=== PATIENT | female | born 2005 | race Caucasian/White ===

== ENCOUNTER 2023-03-30 05:48 | Inpatient (IN) | payer OTHER, SELFPAY ==
[2023-03-30] VITALS (147 sets, daily range): BP systolic 112–137; BP diastolic 56–88; PULSE 75–117; RESP 18; TEMP 36.8–37.7; O2SAT 95–100; BMI 29.5
[2023-03-30 05:39] LABS: ROM Plus Positive
[2023-03-30] MEDS: Penicillin G POT. 5,000,000 UNITS in Normal Saline 100 ML 200 UNITS IVPB (06:19)
[2023-03-30 06:47] LABS: HCT 35.3 % (36.0-46.0); MCH 28.7 pg (27.0-33.0); MCV 84 fL (80-95); MPV 10.3 fL (8.0-11.0); Platelet Count 286 10^3/uL (130-400); RBC 4.18 10^6/uL (3.93-5.22); RDW 12.2 % (11.7-14.6); WBC 13.78 10^3/uL (4.4-10.8)
--- NOTE | 2023-03-30 09:09 | W.PM.OBHPL1 ---
Date of service: 03/30/23 Time of Service: 09:09 Assessment and Plan Assessment and plan (1) Rupture, membranes, premature: Status: Acute Assessment and plan: Pt will get up and walk and see if that helps her discomfort. May consider pain management in the future. Would consider IV medication prior to epidural. OB-HPI Labor/Delivery History of Present Illness Reason for Visit: Labor Chief Complaint: Suspected Rupture of Membranes , Associated Signs and Symptoms of Suspected ROM: loss of fluid. Comments: Pt awoke from sleep to a gush of fluid soaking the bed at 2:40am. Mild contractions started after that. No bleeding. + movement. History of Present Narrative: P0 @37.3wk with uncomplicated . GBS+ Review of Systems Constitutional Constitutional: Reports system reviewed and no additional complaints, except as documented Gastrointestinal Gastrointestinal: Denies nausea and Reports vomiting (throughout - no different now.) Genitourinary Genitourinary: Reports system reviewed and no additional complaints, except as documented Musculoskeletal Comments: No regular contractions PFSH All Active Problems (Updated 03/30/23 @ 09:16 by Inge Dumont MD) Rupture, membranes, premature (Acute) Medical History (Updated 03/30/23 @ 09:16 by Inge Dumont MD) Depression no medication Social History Smoking/Tobacco Use Status: Never Smoking risk assessment performed?: Yes Alcohol Intake: never Drug use: Never Substance use type: does not use Do you feel safe at home: Yes Do you feel safe in your relationship?: Yes History History 1 Para 0 Hx # Term Pregnancies Multiple births Hx # Pregnancies Ectopic pregnancies AB induced Hx Number of Living Children AB spontaneous Exam Physical Exam Vital signs: Temp Pulse Resp BP 98.4 F 83 18 134/86 03/30/23 07:18 03/30/23 08:58 03/30/23 07:18 03/30/23 08:58 Vital Signs Reviewed: Yes Detailed Labor and Delivery Exam Dilation: 1.5 Effacement (%): 90 station: -2 Fischer Score: Cervical Points Exam 0 1 2 3 Dilation Closed 1-2cm 3-4 cm 5-6cm Effacement 0-30% 40-50% 60-70% 80% Consistency Firm Medium Soft Station -3 -2 -1,0 +1,+2 Position Posterior Mid Anterior Amniotic Membrane Status: Ruptured Rupture Method: Spontaneous Amniotic Fluid: Clear ROM Plus: Positive Fetus A Heart Rate Baseline: 135 Monitor Accelerations: Present Monitor Decelerations: None Variability: Moderate (6-25 BPM) Categories: Category I Date of Membrane Rupture: 03/30/23 Time of Membrane Rupture: 02:45 Detailed HEENT Exam Head: Present normocephalic and atraumatic Detailed Abdominal Exam Comments: gravid, nontender EFW ~8lbs Detailed Neurological Exam Neurological: Present alert, oriented X3 and CN II-XII intact DetailedPsychiatric Exam Psychiatric: Present normal affect, normal thought process and cooperative Results Results Group Beta Strep: Positive Blood Type: A+ Rubella Status: Immune Varicella Immunity: Not Tested Abnormal Lab Findings: Abnormal Labs 03/30/23 06:27 WBC 13.78 H Hct 35.3 L Risk Assessment Risks Reviewed Risks Reviewed Upon Admission: Yes
[2023-03-30] MEDS: Penicillin G POT. 3,000,000 UNITS in Normal Saline 50 ML 100 UNITS IVPB ×4 (10:08→22:44)
[2023-03-30] MEDS: NALBUPHINE 5 MG in Normal Saline 50 ML 100 MG IVPB (11:55)
[2023-03-30] MEDS: Ondansetron 4 MG/2 ML VIAL IVP ×3 (14:24→22:44)
--- NOTE | 2023-03-30 14:42 | W.ANESPRE ---
General Info Date of Service Date Performed: 03/30/23 Height: 5 ft 6 in Weight: 83.007 kg Body Mass Index (BMI): 29.5 Meds Allergies and Home Medications Current Visit Medications: Current Medications Generic Name Dose Route Start Last Admin Trade Name Freq PRN Reason Stop Dose Admin Ephedrine Sulfate 5 mg 03/30/23 14:34 Ephedrine 50 Mg/Ml Vial IVP DIRECTED PRN Penicillin G Potassium 3,000, 50 mls @ 100 mls/hr 03/30/23 10:00 03/30/23 14:26 000 units/ Sodium Chloride IVPB 100 mls/hr Q4H MEGHAN Administration Sodium Chloride 500 mls @ 0 mls/hr 03/30/23 05:55 Saline 500ml Bag IV PRN PRN As Directed Sodium Chloride 500 mls @ 0 mls/hr 03/30/23 05:57 Saline 500ml Bag IV PRN PRN As Directed Ringer's Solution 1,000 mls @ 125 mls/hr 03/30/23 06:30 IV INFUSION MEGHAN Nalbuphine HCl 5 mg/ Sodium 50.5 mls @ 100 mls/hr 03/30/23 09:22 03/30/23 13:16 Chloride IVPB Infused PRN PRN Infusion Ringer's Solution 250 mls @ 500 mls/hr 03/30/23 14:34 IV 03/30/23 15:03 BOLUS ONE IV Miscellaneous Supplies 1 each 03/30/23 06:00 Iv Access IV DIRECTED MEGHAN IV Miscellaneous Supplies 1 each 03/30/23 06:00 Iv Access IV DIRECTED MEGHAN Naloxone HCl 0 mg 03/30/23 14:34 Naloxone 0.4 Mg/Ml Vial IVP DIRECTED PRN Ondansetron HCl 4 mg 03/30/23 09:22 03/30/23 14:24 Ondansetron 4 Mg/2 Ml Vial IVP 4 mg Q4H PRN PRN Administration Sodium Chloride 0 ml 03/30/23 05:55 Normal Saline Flush 10 Ml Syr IVP PRN PRN Sodium Chloride 0 ml 03/30/23 05:57 Normal Saline Flush 10 Ml Syr IVP PRN PRN PFSH Active Problems Active Problems: Problem Status Onset Code Rupture, membranes, premature O42.90 Medical History Medical History (Updated 03/30/23 @ 09:16 by Inge Dumont MD) Depression no medication Tobacco Smoking/Tobacco Use Status: Never Alcohol Alcohol Intake: never Substance Use Substance use: Never Substance use type: does not use Prental History History 1 Para 0 Hx # Term Pregnancies Multiple births Hx # Pregnancies Ectopic pregnancies AB induced Hx Number of Living Children AB spontaneous Vital Signs and Lab Results Vital Signs Most Recent Vital Signs in EMR: Most Recent Vital Signs Temp Pulse Resp BP 37.0 C 85 18 133/77 03/30/23 12:44 03/30/23 12:44 03/30/23 12:44 03/30/23 12:44 Lab Results 03/30/23 06:27 Blood Type / Crossmatch: Patient ABO/Rh A Positive 03/30/23 Antibody Screen NEGATIVE 03/30/23 Complete Blood Count: White Blood Count 13.78 10^3/uL (4.4-10.8) H 03/30/23 06:27 Red Blood Count 4.18 10^6/uL (3.93-5.22) 03/30/23 06:27 Hemoglobin 12.0 g/dL (11.2-15.7) 03/30/23 06:27 Hematocrit 35.3 % (36.0-46.0) L 03/30/23 06:27 Platelet Count 286 10^3/uL (130-400) 03/30/23 06:27 Complete Metabolic Panel: No Data to Display Liver Function Panel: No Data to Display Coagulation Panel: No Data to Display Cardiac Panel: No Data to Display Arterial Blood Gas: No Data to Display Venous Blood Gas: No Data to Display Pancreas Panel: No Data to Display Thyroid Panel: No Data to Display Infectious Disease: No Data to Display Blood Cultures: No Data to Display Toxicology Panel: No Data to Display Panel: No Data to Display Anesthesia Assessment and Plan Anesthesia History Personal History: No History of Anesthesia Complications Family History: No Family History of Anesthesia Complications Exercise Tolerance Exercise Tolerance: Metabolic Equivalents>4 Cardiac & Pulmonary Exam Cardiac Exam: Normal S1/S2 Heart Sounds Pulmonary Exam: Clear Bilateral Breath Sounds Implantable Cardiac Device Does patient have a Pacemaker or an ICD?: No Airway Exam Known Difficult Airway: No Mallampati Class: 3 Mouth Opening: Normal (> 3cm) Thyromental Distance: Greater than 3 cm Neck Range of Motion: Full ROM Neck Circumference: Normal Teeth Condition: Normal Dentition ASA Classification ASA Score: ASA 2 Emergency Case?: No NPO Status NPO Status: Full Stomach Status Status: Confirmed Anesthesia Plan Resuscitation Status: Full Code Anesthesia Technique: Epidural Anesthesia Airway Planned: Natural Airway Monitors Used: Standard Monitors Preoperative Comments:: 17 yo female requesting labor epidural. 37 wks, last exam noted at 1240 2 cm, 90%, 0. Sig PMHx: depression, never smoker, otherwise healthy.
--- NOTE | 2023-03-30 15:00 | W.PM.OBNL1 ---
Date of service: 03/30/23 Time of Service: 14:30 Pelvic Exam Dilation: 3 Effacement (%): 95 station: 0 Fetus A Heart Rate Baseline: 135 Presentation: Vertex Variability: Moderate (6-25 BPM) Categories: Category I Accelerations: 15 X 15 Decelerations: None Amniotic Membrane Status: Ruptured Rupture Method: Spontaneous Assessment and Plan Assessment and plan (1) Rupture, membranes, premature: Status: Acute Assessment and plan: Discussed the various options for pain management including IV pain meds, NO and an epidural. She opts for the epidural. Anesthesia notified. All questions answered. Objective Abnormal lab results 03/30/23 Range/Units 06:27 WBC 13.78 H (4.4-10.8) 10^3/uL Hct 35.3 L (36.0-46.0) % Temp Pulse Resp BP Pulse Ox 98.8 F 100 H 18 137/88 100 03/30/23 14:56 03/30/23 14:59 03/30/23 12:44 03/30/23 14:51 03/30/23 14:57 Laboratory Results WBC 13.78 10^3/uL (4.4-10.8) H 03/30/23 06:27 RBC 4.18 10^6/uL (3.93-5.22) 03/30/23 06:27 Hgb 12.0 g/dL (11.2-15.7) 03/30/23 06:27 Hct 35.3 % (36.0-46.0) L 03/30/23 06:27 MCV 84 fL (80-95) 03/30/23 06:27 MCH 28.7 pg (27.0-33.0) 03/30/23 06:27 MCHC 34.0 % (32.0-36.0) 03/30/23 06:27 RDW 12.2 % (11.7-14.6) 03/30/23 06:27 Plt Count 286 10^3/uL (130-400) 03/30/23 06:27 MPV 10.3 fL (8.0-11.0) 03/30/23 06:27 Membranes Rupture Positive 03/30/23 05:02 Patient ABO/Rh A Positive 03/30/23 06:27 Antibody Screen NEGATIVE 03/30/23 06:27 Vital Signs Reviewed: Yes Subjective Interval history since last seen: Pt more uncomfortable with the contractions feeling stronger and increased pressure. She is feeling tired and discouraged. Results Hemoglobin/Hematocrit: Hgb 12.0 g/dL (11.2-15.7) 03/30/23 06:27 Hct 35.3 % (36.0-46.0) L 03/30/23 06:27 Abnormal Lab Findings: Abnormal Labs 03/30/23 06:27 WBC 13.78 H Hct 35.3 L
[2023-03-30] MEDS: FentaNYL/ROPIvacaine 2 mcg/ml and 0.1% 200 ML CADD Cassette EP (15:16)
--- NOTE | 2023-03-30 15:27 | ANES.NEURP_ITS ---
Epidural/Spinal Daily Note Date Performed: 03/30/23
--- NOTE | 2023-03-30 15:27 | W.ANESEPD ---
Epidural/Spinal Daily Note Date Performed: 03/30/23
--- NOTE | 2023-03-30 15:28 | W.ANESNEU ---
Epidural/Spinal Catheter Date Performed: 03/30/23 Procedure Start: 15:00 Procedure Stop: 15:15 Requesting Provider: Inge Dumont Procedure Location: Obstetrics Reason Performed: Labor Epidural Standard Monitors Applied: Blood Pressure and SpO2 Patient Position: Sitting Sedation Given (Indicate Dose Given): No Sedation given Patient Mental Status: Awake Sterility: Hand Hygiene, Surgical Cap, Surgical Mask, Sterile Gloves, Sterile Drape/Sheet and Chlorhexidine Procedure Location: L2-L3 Interspace Epidural Needle: Tuohy 17 Guage Needle Length: 3.5 Inch Needle Approach: Midline Epidural Procedure: BEVERLY to Saline Used Catheter Placed?: Catheter Placed Test Dose (Indicate Dose Given): 3ml 1.5% Lidocaine with 1:200K Epinephrine Given and Negative Test Dose Loss of Resistance Depth (cm): 4 Catheter depth at skin (cm): 10 Dressing: Sorbaview Dressing Placed and Mastisol Used Epidural Provider Bolus (Indicate Dose Given): Total Ropivacaine 0.1% with Fentanyl 2mcg/ml Given from pump. (ml) Dose:: 7 mL Additives (Indicate Dose Given ): None Infusion Medication: Medication Infusion Began Medication Infusion: Ropivacaine 0.1% with Fentanyl 2mcg/ml Maintenance Infusion Rate (ml/hour): 10 PCEA Bolus Dose (ml): 5 Block Level: N/A Paresthesia: None Ultrasound: Used to kumar site Number of Attempts (See previous attempts in note section): 1 Procedure Tolerated: No Complications Procedure Outcome: Successful Procedure Comment:: after loading dose, next contraction appeared much more comfortable. States that the effect feels equal both side. educated on PCEA. Performed By: Celestino John
[2023-03-30] MEDS: Lactated Ringers 250 ML 500 ML IV (15:50)
--- NOTE | 2023-03-30 17:27 | W.PM.OBNL1 ---
Date of service: 03/30/23 Time of Service: 17:20 Pelvic Exam Dilation: 4 Effacement (%): 100 station: 0 Fetus A Heart Rate Baseline: 130 Presentation: Vertex Variability: Moderate (6-25 BPM) Accelerations: 15 X 15 Decelerations: None Amniotic Membrane Status: Ruptured Rupture Method: Spontaneous Amniotic Fluid: Clear Assessment and Plan Assessment and plan (1) Rupture, membranes, premature: Status: Acute Assessment and plan: Comfortable with epidural. Continue expectant management. Dr. Morales aware of pt status and will assume care shortly. (2) Positive GBS test: Status: Acute Assessment and plan: Continue PCN propylaxis Objective Abnormal lab results 03/30/23 Range/Units 06:27 WBC 13.78 H (4.4-10.8) 10^3/uL Hct 35.3 L (36.0-46.0) % Temp Pulse Resp BP Pulse Ox 98.4 F 95 H 18 121/73 98 03/30/23 16:00 03/30/23 17:25 03/30/23 15:16 03/30/23 16:55 03/30/23 17:25 Laboratory Results WBC 13.78 10^3/uL (4.4-10.8) H 03/30/23 06:27 RBC 4.18 10^6/uL (3.93-5.22) 03/30/23 06:27 Hgb 12.0 g/dL (11.2-15.7) 03/30/23 06:27 Hct 35.3 % (36.0-46.0) L 03/30/23 06:27 MCV 84 fL (80-95) 03/30/23 06:27 MCH 28.7 pg (27.0-33.0) 03/30/23 06:27 MCHC 34.0 % (32.0-36.0) 03/30/23 06:27 RDW 12.2 % (11.7-14.6) 03/30/23 06:27 Plt Count 286 10^3/uL (130-400) 03/30/23 06:27 MPV 10.3 fL (8.0-11.0) 03/30/23 06:27 Membranes Rupture Positive 03/30/23 05:02 Patient ABO/Rh A Positive 03/30/23 06:27 Antibody Screen NEGATIVE 03/30/23 06:27 Vital Signs Reviewed: Yes Subjective Interval history since last seen: Pt is comfortable s/p epidural Results Hemoglobin/Hematocrit: Hgb 12.0 g/dL (11.2-15.7) 03/30/23 06:27 Hct 35.3 % (36.0-46.0) L 03/30/23 06:27 Abnormal Lab Findings: Abnormal Labs 03/30/23 06:27 WBC 13.78 H Hct 35.3 L
[2023-03-30] MEDS: Lactated Ringers 250 ML 999 ML IV (19:09)
[2023-03-30] MEDS: Lactated Ringers 1,000 ML 125 ML IV (19:51)
--- NOTE | 2023-03-30 20:45 | W.PM.OBNL1 ---
Date of service: 03/30/23 Time of Service: 20:46 Pelvic Exam Dilation: 6.5 Effacement (%): 100 station: 0 Cervix Position: anterior Consistency: soft Vaginal Exam Presentation: Vertex Contractions Monitor Mode: External Contraction Frequency(min): 3 Contraction Duration(sec): 60 Fetus A Monitor: External (US) Heart Rate Baseline: 150 Presentation: Vertex Variability: Moderate (6-25 BPM) Categories: Category I FHR Rhythm: Regular Characteristics: Normal Accelerations: 15 X 15 Decelerations: Late (minimal intermittent late decels previously, now resolved) and Variable (intermittent, mild) Recurrence: Intermittent Amniotic Membrane Status: Ruptured Assessment Note: Currently category 1 however periods of category 2 with mild intermittent late and variable decels. She had one prolonged decel that resolved with position change and fluid bolus to mom. Assessment and Plan Assessment and plan (1) Rupture, membranes, premature: Status: Acute Assessment and plan: Vanda is doing well, epidural effective. She has made good cervical change and baby is low. SVE 6-7/100/0. Baby has had periods of minimal variability and intermittent late and variable decels after one prolonged decel, however he has recovered to a category 1 strip. Will monitor closely, continue with position changes. GBS+ with now 4 doses of pen in, so adequately prophylaxed. (2) Positive GBS test: Status: Acute (3) : Status: Acute Objective Abnormal lab results 03/30/23 Range/Units 06:27 WBC 13.78 H (4.4-10.8) 10^3/uL Hct 35.3 L (36.0-46.0) % Temp Pulse Resp BP Pulse Ox 37.1 C 107 H 18 120/67 99 03/30/23 20:33 03/30/23 20:41 03/30/23 15:16 03/30/23 20:41 03/30/23 19:20 Laboratory Results WBC 13.78 10^3/uL (4.4-10.8) H 03/30/23 06:27 RBC 4.18 10^6/uL (3.93-5.22) 03/30/23 06:27 Hgb 12.0 g/dL (11.2-15.7) 03/30/23 06:27 Hct 35.3 % (36.0-46.0) L 03/30/23 06:27 MCV 84 fL (80-95) 03/30/23 06:27 MCH 28.7 pg (27.0-33.0) 03/30/23 06:27 MCHC 34.0 % (32.0-36.0) 03/30/23 06:27 RDW 12.2 % (11.7-14.6) 03/30/23 06:27 Plt Count 286 10^3/uL (130-400) 03/30/23 06:27 MPV 10.3 fL (8.0-11.0) 03/30/23 06:27 Membranes Rupture Positive 03/30/23 05:02 Patient ABO/Rh A Positive 03/30/23 06:27 Antibody Screen NEGATIVE 03/30/23 06:27 Vital Signs Reviewed: Yes Subjective Patient Reports: No new Complaints Results Hemoglobin/Hematocrit: Hgb 12.0 g/dL (11.2-15.7) 03/30/23 06:27 Hct 35.3 % (36.0-46.0) L 03/30/23 06:27 Abnormal Lab Findings: Abnormal Labs 03/30/23 06:27 WBC 13.78 H Hct 35.3 L
--- NOTE | 2023-03-30 22:03 | W.PM.OBNL1 ---
Date of service: 03/30/23 Time of Service: 22:03 Pelvic Exam Dilation: 8 Effacement (%): 100 station: 0 Cervix Position: anterior Consistency: soft Vaginal Exam Presentation: Vertex Contractions Monitor Mode: External Contraction Frequency(min): 3 Contraction Duration(sec): 60 Intensity: Moderate Fetus A Monitor: External (US) Heart Rate Baseline: 160 Presentation: Vertex Variability: Moderate (6-25 BPM) Categories: Category II FHR Rhythm: Regular Characteristics: Normal Accelerations: 15 X 15 Decelerations: Prolonged Recurrence: Intermittent Amniotic Membrane Status: Ruptured Assessment Note: Category 2 strip with recent mild prolonged decel to 120 for 2 minutes, current minimal varriability, does respond to position changes, and normal (category 1) strip in between periods of category 2 Assessment and Plan Assessment and plan (1) Rupture, membranes, premature: Status: Acute Assessment and plan: Vanda continues to progress, now 8cm. She is doing well, although category 2 strip with now 2 prolonged decels and periods of minimal variability that responds to position changes, juice for mom, and increased IV fluids. Continue expectant management with conservative interventions. (2) Positive GBS test: Status: Acute Objective Abnormal lab results 03/30/23 Range/Units 06:27 WBC 13.78 H (4.4-10.8) 10^3/uL Hct 35.3 L (36.0-46.0) % Temp Pulse Resp BP Pulse Ox 36.9 C 107 H 18 127/68 99 03/30/23 21:50 03/30/23 21:40 03/30/23 15:16 03/30/23 21:40 03/30/23 19:20 Laboratory Results WBC 13.78 10^3/uL (4.4-10.8) H 03/30/23 06:27 RBC 4.18 10^6/uL (3.93-5.22) 03/30/23 06:27 Hgb 12.0 g/dL (11.2-15.7) 03/30/23 06:27 Hct 35.3 % (36.0-46.0) L 03/30/23 06:27 MCV 84 fL (80-95) 03/30/23 06:27 MCH 28.7 pg (27.0-33.0) 03/30/23 06:27 MCHC 34.0 % (32.0-36.0) 03/30/23 06:27 RDW 12.2 % (11.7-14.6) 03/30/23 06:27 Plt Count 286 10^3/uL (130-400) 03/30/23 06:27 MPV 10.3 fL (8.0-11.0) 03/30/23 06:27 Membranes Rupture Positive 03/30/23 05:02 Patient ABO/Rh A Positive 03/30/23 06:27 Antibody Screen NEGATIVE 03/30/23 06:27 Vital Signs Reviewed: Yes Subjective Interval history since last seen: Vanda is reporting increased pressure Results Hemoglobin/Hematocrit: Hgb 12.0 g/dL (11.2-15.7) 03/30/23 06:27 Hct 35.3 % (36.0-46.0) L 03/30/23 06:27 Abnormal Lab Findings: Abnormal Labs 03/30/23 06:27 WBC 13.78 H Hct 35.3 L
[2023-03-30] MEDS: Lactated Ringers 1,000 ML 200 ML IV (23:46)
[2023-03-31] VITALS (24 sets, daily range): BP systolic 100–136; BP diastolic 52–80; PULSE 66–131; RESP 16–18; TEMP 36.4–37.7; O2SAT 95–100; BMI 29.5
--- NOTE | 2023-03-31 02:12 | W.PM.OBNL1 ---
Date of service: 03/31/23 Time of Service: 02:12 Pelvic Exam Dilation: 9 Effacement (%): 100 station: +1 Cervix Position: anterior Consistency: soft Vaginal Exam Presentation: Vertex Contractions Monitor Mode: External Intensity: Moderate Fetus A Monitor: External (US) Heart Rate Baseline: 150 Presentation: Vertex Variability: Moderate (6-25 BPM) Categories: Category I FHR Rhythm: Regular Characteristics: Normal Accelerations: 15 X 15 Decelerations: Prolonged Amniotic Membrane Status: Ruptured Assessment and Plan Assessment and plan (1) Rupture, membranes, premature: Status: Acute Assessment and plan: Vanda was feeling increased pressure, and exam was anterior lip. She attempted pushing but was not able to feel contractions and was very tired, was not able to push effectively. We stopped the epidural to help increase sensation. After several position changes, and head moved some, I was then able to feel cervix all the way around. We stopped pushing and will have her continue to labor. Hopefully as the epidural wears off, she will be able to feel her contractions and push more effectively when she does reach complete. baby had a mild prolonged contraction again with trial pushing, but is otherwise category 1. (2) Positive GBS test: Status: Acute (3) : Status: Acute Objective Abnormal lab results 03/30/23 Range/Units 06:27 WBC 13.78 H (4.4-10.8) 10^3/uL Hct 35.3 L (36.0-46.0) % Temp Pulse Resp BP Pulse Ox 37.7 C H 110 H 18 136/62 96 03/31/23 00:10 03/31/23 01:52 03/30/23 15:16 03/31/23 00:41 03/31/23 01:52 Laboratory Results WBC 13.78 10^3/uL (4.4-10.8) H 03/30/23 06:27 RBC 4.18 10^6/uL (3.93-5.22) 03/30/23 06:27 Hgb 12.0 g/dL (11.2-15.7) 03/30/23 06:27 Hct 35.3 % (36.0-46.0) L 03/30/23 06:27 MCV 84 fL (80-95) 03/30/23 06:27 MCH 28.7 pg (27.0-33.0) 03/30/23 06:27 MCHC 34.0 % (32.0-36.0) 03/30/23 06:27 RDW 12.2 % (11.7-14.6) 03/30/23 06:27 Plt Count 286 10^3/uL (130-400) 03/30/23 06:27 MPV 10.3 fL (8.0-11.0) 03/30/23 06:27 Membranes Rupture Positive 03/30/23 05:02 Patient ABO/Rh A Positive 03/30/23 06:27 Antibody Screen NEGATIVE 03/30/23 06:27 Subjective Interval history since last seen: Feeling pressure with contractions very minimally, no urge to push, extremely dense epidural. Vanda is exhausted as well. Results Hemoglobin/Hematocrit: Hgb 12.0 g/dL (11.2-15.7) 03/30/23 06:27 Hct 35.3 % (36.0-46.0) L 03/30/23 06:27 Abnormal Lab Findings: Abnormal Labs 03/30/23 06:27 WBC 13.78 H Hct 35.3 L
[2023-03-31] MEDS: Penicillin G POT. 3,000,000 UNITS in Normal Saline 50 ML 100 UNITS IVPB ×2 (02:32→07:02)
[2023-03-31] MEDS: Ondansetron 4 MG/2 ML VIAL IVP (02:32)
--- NOTE | 2023-03-31 03:03 | W.PM.OBNL1 ---
Date of service: 03/31/23 Time of Service: 03:03 Pelvic Exam Dilation: 9 Effacement (%): 100 station: +1 Cervix Position: anterior Consistency: soft Vaginal Exam Presentation: Vertex Contractions Monitor Mode: External Contraction Frequency(min): 3 Contraction Duration(sec): 60 Intensity: Moderate Fetus A Monitor: External (US) Heart Rate Baseline: 140 Presentation: Vertex Variability: Moderate (6-25 BPM) Categories: Category I FHR Rhythm: Regular Characteristics: Normal Accelerations: 15 X 15 Decelerations: None Amniotic Membrane Status: Ruptured Assessment and Plan Assessment and plan (1) Rupture, membranes, premature: Status: Acute Assessment and plan: With the epidural off, Vanda was very uncomfortable and extremely tense. She felt the urge to push but was not complete. Baby is currently category 1. I discuss the case with Dr Dumont and we agreed that we will restart the epidural and let Vanda rest. Cervix is becoming swollen, so will also give 50mg Bendaryl to see if that helps. Hope she is able to reach complete shortly and get some rest so she is able to push effectively. (2) Positive GBS test: Status: Acute Objective Abnormal lab results 03/30/23 Range/Units 06:27 WBC 13.78 H (4.4-10.8) 10^3/uL Hct 35.3 L (36.0-46.0) % Temp Pulse Resp BP Pulse Ox 37.3 C 107 H 18 135/80 96 03/31/23 02:39 03/31/23 02:39 03/30/23 15:16 03/31/23 02:39 03/31/23 01:52 Laboratory Results WBC 13.78 10^3/uL (4.4-10.8) H 03/30/23 06:27 RBC 4.18 10^6/uL (3.93-5.22) 03/30/23 06:27 Hgb 12.0 g/dL (11.2-15.7) 03/30/23 06:27 Hct 35.3 % (36.0-46.0) L 03/30/23 06:27 MCV 84 fL (80-95) 03/30/23 06:27 MCH 28.7 pg (27.0-33.0) 03/30/23 06:27 MCHC 34.0 % (32.0-36.0) 03/30/23 06:27 RDW 12.2 % (11.7-14.6) 03/30/23 06:27 Plt Count 286 10^3/uL (130-400) 03/30/23 06:27 MPV 10.3 fL (8.0-11.0) 03/30/23 06:27 Membranes Rupture Positive 03/30/23 05:02 Patient ABO/Rh A Positive 03/30/23 06:27 Antibody Screen NEGATIVE 03/30/23 06:27 Subjective Interval history since last seen: Epidural was turned off so she is feeling signifcant pain and pressure with contractions Results Hemoglobin/Hematocrit: Hgb 12.0 g/dL (11.2-15.7) 03/30/23 06:27 Hct 35.3 % (36.0-46.0) L 03/30/23 06:27 Abnormal Lab Findings: Abnormal Labs 03/30/23 06:27 WBC 13.78 H Hct 35.3 L
[2023-03-31] MEDS: diphenhydrAMINE 25 MG CAP 50 MG PO (03:17)
--- NOTE | 2023-03-31 06:21 | W.PM.OBNL1 ---
Date of service: 03/31/23 Time of Service: 06:21 Pelvic Exam Dilation: 10 station: +1 Cervix Position: anterior Consistency: soft Vaginal Exam Presentation: Vertex Contractions Monitor Mode: External Contraction Frequency(min): 3 Contraction Duration(sec): 60 Intensity: Moderate Fetus A Monitor: External (US) Heart Rate Baseline: 145 Presentation: Vertex Variability: Moderate (6-25 BPM) Categories: Category I Characteristics: Normal Accelerations: 15 X 15 Decelerations: None Amniotic Membrane Status: Ruptured Assessment and Plan Assessment and plan (1) Rupture, membranes, premature: Status: Acute Assessment and plan: Vanda did reach complete however with significantly swollen labia and cervix. We gave her a dose of Benadryl to help with cervical swelling. She pushed for over an hour, and made minimal change. Her exhaustion is preventing adequate pushing at this point. She is now resting to regain strength, and I have asked Dr Dumont to come examine her and we can determine a plan. FHT was Category 1 throughout pushing. (2) Positive GBS test: Status: Acute Objective Abnormal lab results 03/30/23 Range/Units 06:27 WBC 13.78 H (4.4-10.8) 10^3/uL Hct 35.3 L (36.0-46.0) % Temp Pulse Resp BP Pulse Ox 37.0 C 100 H 18 113/61 96 03/31/23 06:01 03/31/23 06:01 03/30/23 15:16 03/31/23 06:01 03/31/23 01:52 Laboratory Results WBC 13.78 10^3/uL (4.4-10.8) H 03/30/23 06:27 RBC 4.18 10^6/uL (3.93-5.22) 03/30/23 06:27 Hgb 12.0 g/dL (11.2-15.7) 03/30/23 06:27 Hct 35.3 % (36.0-46.0) L 03/30/23 06:27 MCV 84 fL (80-95) 03/30/23 06:27 MCH 28.7 pg (27.0-33.0) 03/30/23 06:27 MCHC 34.0 % (32.0-36.0) 03/30/23 06:27 RDW 12.2 % (11.7-14.6) 03/30/23 06:27 Plt Count 286 10^3/uL (130-400) 03/30/23 06:27 MPV 10.3 fL (8.0-11.0) 03/30/23 06:27 Membranes Rupture Positive 03/30/23 05:02 Patient ABO/Rh A Positive 03/30/23 06:27 Antibody Screen NEGATIVE 03/30/23 06:27 Vital Signs Reviewed: Yes Subjective Patient Reports: No new Complaints Results Hemoglobin/Hematocrit: Hgb 12.0 g/dL (11.2-15.7) 03/30/23 06:27 Hct 35.3 % (36.0-46.0) L 03/30/23 06:27 Abnormal Lab Findings: Abnormal Labs 03/30/23 06:27 WBC 13.78 H Hct 35.3 L
[2023-03-31] MEDS: Lactated Ringers 1,000 ML 125 ML IV (06:57)
--- NOTE | 2023-03-31 07:31 | W.PM.OBNL1 ---
Date of service: 03/31/23 Time of Service: 07:15 Pelvic Exam Dilation: 9 Effacement (%): 90 station: +1 Contractions Contraction Frequency(min): 2-4min Fetus A Heart Rate Baseline: 130 Presentation: Vertex Variability: Moderate (6-25 BPM) Categories: Category I Accelerations: 15 X 15 Decelerations: None Assessment and Plan Assessment and plan (1) Arrested active phase of labor: Status: Acute Assessment and plan: Discussed the situation with the patient and her family. She agrees to proceed with section. Risks reviewed including infection, bleeding, pain and inury to nearby organs. Questions answered and consent signed. OR notified. Objective Temp Pulse Resp BP Pulse Ox 98.6 F 100 H 18 113/61 96 03/31/23 06:01 03/31/23 06:01 03/30/23 15:16 03/31/23 06:01 03/31/23 01:52 Laboratory Results WBC 13.78 10^3/uL (4.4-10.8) H 03/30/23 06:27 RBC 4.18 10^6/uL (3.93-5.22) 03/30/23 06:27 Hgb 12.0 g/dL (11.2-15.7) 03/30/23 06:27 Hct 35.3 % (36.0-46.0) L 03/30/23 06:27 MCV 84 fL (80-95) 03/30/23 06:27 MCH 28.7 pg (27.0-33.0) 03/30/23 06:27 MCHC 34.0 % (32.0-36.0) 03/30/23 06:27 RDW 12.2 % (11.7-14.6) 03/30/23 06:27 Plt Count 286 10^3/uL (130-400) 03/30/23 06:27 MPV 10.3 fL (8.0-11.0) 03/30/23 06:27 Membranes Rupture Positive 03/30/23 05:02 Patient ABO/Rh A Positive 03/30/23 06:27 Antibody Screen NEGATIVE 03/30/23 06:27 Vital Signs Reviewed: Yes Objective Narrative Objective Narrative: Pt progressed to anterior lip and tried pushing intermittently over the course of 5hrs with the epidural turned off for a while. However, she did not tolerate the pain then. The epidural was turned back on and provided spotty relief. She was unable to make any significant progress and the cervix continued to have a persistent anterior lip. There was molding of the head inhibiting adequate evaluation of the position. Subjective Interval history since last seen: Pt is exhausted. She has tried pushing to reduce the cervix. Results Hemoglobin/Hematocrit: Hgb 12.0 g/dL (11.2-15.7) 03/30/23 06:27 Hct 35.3 % (36.0-46.0) L 03/30/23 06:27 Abnormal Lab Findings: Abnormal Labs 03/30/23 06:27 WBC 13.78 H Hct 35.3 L
--- NOTE | 2023-03-31 07:36 | W.ANESPRE ---
General Info Date of Service Date Performed: 03/31/23 Height: 5 ft 6 in Weight: 83.007 kg Body Mass Index (BMI): 29.5 Surgical Procedure: Operation Date: 03/31/23 07:40 Proposed Procedure Side Surgeon p Section Inge Dumont MD Meds Allergies and Home Medications Current Visit Medications: Current Medications Generic Name Dose Route Start Last Admin Trade Name Freq PRN Reason Stop Dose Admin Citric Acid/Sodium Citrate 30 ml 03/31/23 08:00 Sodium Citrate 30 Ml Cup PO PREOP MEGHAN Ephedrine Sulfate 5 mg 03/30/23 14:34 Ephedrine 50 Mg/Ml Vial IVP DIRECTED PRN Ephedrine Sulfate 5 mg 03/30/23 15:33 Ephedrine 50 Mg/Ml Vial IVP DIRECTED PRN Fentanyl/Ropivacaine 200 ml 03/30/23 15:45 Fentanyl/Ropivacaine 2 Mcg/Ml And 0.1% 200 Ml Cadd Cassette EP DIRECTED MEGHAN Penicillin G Potassium 3,000, 50 mls @ 100 mls/hr 03/30/23 10:00 03/31/23 07:02 000 units/ Sodium Chloride IVPB 100 mls/hr Q4H MEGHAN Administration Sodium Chloride 500 mls @ 0 mls/hr 03/30/23 05:55 Saline 500ml Bag IV PRN PRN As Directed Sodium Chloride 500 mls @ 0 mls/hr 03/30/23 05:57 Saline 500ml Bag IV PRN PRN As Directed Ringer's Solution 1,000 mls @ 125 mls/hr 03/30/23 06:30 03/31/23 06:57 IV 125 mls/hr INFUSION MEGHAN Administration Nalbuphine HCl 5 mg/ Sodium 50.5 mls @ 100 mls/hr 03/30/23 09:22 03/30/23 13:16 Chloride IVPB Infused PRN PRN Infusion Naloxone HCl 2 mg/ Sodium 500 mls @ 10.376 mls/hr 03/30/23 15:33 Chloride IV INFUSION PRN pruritis 0.5 MCG/KG/HR Cefazolin Sodium/Dextrose 2 gm in 50 mls @ 100 mls/hr 03/31/23 07:45 Ancef Duplex IVPB PREOP MEGHAN Azithromycin 500 mg/ Sodium 250 mls @ 250 mls/hr 03/31/23 07:45 Chloride IVPB PREOP MEGHAN Ringer's Solution 1,000 mls @ 200 mls/hr 03/31/23 07:45 IV INFUSION MEGHAN Sodium Chloride 500 mls @ 0 mls/hr 03/31/23 07:31 Saline 500ml Bag IV PRN PRN As Directed IV Miscellaneous Supplies 1 each 03/30/23 06:00 Iv Access IV DIRECTED [facility] IV Miscellaneous Supplies 1 each 03/30/23 06:00 Iv Access IV DIRECTED [facility] IV Miscellaneous Supplies 1 each 03/31/23 07:45 Iv Access IV DIRECTED MEGHAN Naloxone HCl 0 mg 03/30/23 14:34 Naloxone 0.4 Mg/Ml Vial IVP DIRECTED PRN Naloxone HCl 0 mg 03/30/23 15:33 Naloxone 0.4 Mg/Ml Vial IVP DIRECTED PRN Naloxone HCl 0.04 mg 03/30/23 15:33 Naloxone 0.4 Mg/Ml Vial IVP PRN PRN PRURITIS Ondansetron HCl 4 mg 03/30/23 09:22 03/31/23 02:32 Ondansetron 4 Mg/2 Ml Vial IVP 4 mg Q4H PRN PRN Administration Sodium Chloride 0 ml 03/30/23 05:55 Normal Saline Flush 10 Ml Syr IVP PRN PRN Sodium Chloride 0 ml 03/30/23 05:57 Normal Saline Flush 10 Ml Syr IVP PRN PRN Sodium Chloride 0 ml 03/31/23 07:31 Normal Saline Flush 10 Ml Syr IVP PRN PRN PFSH Active Problems Active Problems: Problem Status Onset Code Z34.90 Rupture, membranes, premature O42.90 Positive GBS test B95.1 Medical History Medical History (Updated 03/30/23 @ 20:50 by Alireza Morales) Depression no medication Tobacco Smoking/Tobacco Use Status: Never Alcohol Alcohol Intake: never Substance Use Substance use: Never Substance use type: does not use Prental History History 1 Para 0 Hx # Term Pregnancies Multiple births Hx # Pregnancies Ectopic pregnancies AB induced Hx Number of Living Children AB spontaneous Vital Signs and Lab Results Vital Signs Most Recent Vital Signs in EMR: Most Recent Vital Signs Temp Pulse Resp BP Pulse Ox 37.0 C 100 H 18 113/61 96 03/31/23 06:01 03/31/23 06:01 03/30/23 15:16 03/31/23 06:01 03/31/23 01:52 Lab Results 03/30/23 06:27 Blood Type / Crossmatch: Patient ABO/Rh A Positive 03/30/23 Antibody Screen NEGATIVE 03/30/23 Complete Blood Count: White Blood Count 13.78 10^3/uL (4.4-10.8) H 03/30/23 06:27 Red Blood Count 4.18 10^6/uL (3.93-5.22) 03/30/23 06:27 Hemoglobin 12.0 g/dL (11.2-15.7) 03/30/23 06:27 Hematocrit 35.3 % (36.0-46.0) L 03/30/23 06:27 Platelet Count 286 10^3/uL (130-400) 03/30/23 06:27 Complete Metabolic Panel: No Data to Display Liver Function Panel: No Data to Display Coagulation Panel: No Data to Display Cardiac Panel: No Data to Display Arterial Blood Gas: No Data to Display Venous Blood Gas: No Data to Display Pancreas Panel: No Data to Display Thyroid Panel: No Data to Display Infectious Disease: No Data to Display Blood Cultures: No Data to Display Toxicology Panel: No Data to Display Panel: No Data to Display Anesthesia Assessment and Plan Anesthesia History Personal History: No History of Anesthesia Complications Family History: No Family History of Anesthesia Complications Exercise Tolerance Exercise Tolerance: Metabolic Equivalents>4 Pertinent Negatives Pertinent Negatives: No Major Cardiovascular Symptoms or Complaints and No Major Pulmonary Symptoms or Complaints Cardiac & Pulmonary Exam Cardiac Exam: Normal S1/S2 Heart Sounds Pulmonary Exam: Clear Bilateral Breath Sounds Implantable Cardiac Device Does patient have a Pacemaker or an ICD?: No Airway Exam Known Difficult Airway: No Mallampati Class: 3 Mouth Opening: Normal (> 3cm) Thyromental Distance: Greater than 3 cm Neck Range of Motion: Full ROM Neck Circumference: Normal Teeth Condition: Normal Dentition ASA Classification ASA Score: ASA 2 Emergency Case?: No NPO Status NPO Status: Full Stomach Status Status: Confirmed Anesthesia Plan Resuscitation Status: Full Code Anesthesia Technique: Spinal Anesthesia Airway Planned: Natural Airway Pain Management: Intrathecal Analgesia Monitors Used: Standard Monitors Preoperative Comments:: Plan for IT fentanyl and Morphine, discussed with patient and on consent. Patient awake, but exhausted. All questions were answered and family present in room. Epidural catheter assessed, patient states it's spotty in coverage. Plan to stop infusion and remove catheter and preform spinal.
[2023-03-31] MEDS: AZITHROMYCIN 500 MG in Normal Saline 250 ML 250 MG IVPB (07:54)
[2023-03-31] MEDS: ceFAZolin 2 GM/50 ML BAG IVPB (08:22)
[2023-03-31] MEDS: Bupivacaine 0.25% Pres-Free 30 ML VIAL (09:00)
--- NOTE | 2023-03-31 09:10 | PLAC_PTH ---
PATIENT: Vanda Choi LOC: OBS U#:[id number] AGE/SX: 17/F ROOM: OBS.304 RE03/30/[address]: Inge Dumont MD : 2005 BED: A DIS: 04/02/2023 SPEC #: [id number] RECD: 03/31/23 12:02 STATUS: KUNAL REQ #: [id number] EDWIN: 03/31/23 09:[address]: Inge Dumont DEPT: Surgical Specimen RECD BY: Janeth Knowles Tissues: 1 - PLACENTA (3RD TRIMESTER) Procedures: GROSS AND MICRO LEVEL 5 Comments: [id number]
--- NOTE | 2023-03-31 09:25 | W.PM.OP ---
Date of service: 03/31/23 Time of Service: 08:30 Operative Note Operative Note DATE OF PROCEDURE: 03/31/23 PRE-OP DIAGNOSIS: arrest of labor POST-OP DIAGNOSIS: same Direct OP/asynclitic position PROCEDURE: PLTCS SURGEON: Inge Dumont ASSISTING SURGEON: Victor M Tatum RACE BOARD ATTENDANT: Lamonte Johnson Refer to Anesthesia Record ESTIMATED BLOOD LOSS: 600 COMPLICATIONS: None Patient was transported to: floor Patient's condition: stable Indications: 17yo @ 37.3wks with PROM and eventual progression to spontaneous labor but with arrest of labor at 9cm. Baby OP and asynclitic. Findings: Male , vigorous on delivery. Normal appearing uterus, ovaries and tubes. Placenta with what appeared to be a subchorionic hemorrhage near the cord insertion. 3 vessel cord. Procedure Description: After informed consent was signed the patient was taken to the operating room. She was given spinal anesthesia, SCDs were placed on her legs and a feliciano catheter was introduced into her bladder. The heart rate was checked and was normal. She underwent abdominal and vaginal prep and was draped in the dorsal supine position with a leftward tilt. The patient was tested and spinal anesthesia was found to be adequate. A time out was performed. A skin incision was made with the scalpel and carried down to the underlying layer of fascia with blunt dissection. The fascia was incised on either side of the midline and the fascial incision extended laterally with a combination of sharp and blunt dissection. The inferior edge of the fascia was grasped with whitney clamps and tented up and dissected down with a combination of sharp and blunt dissection. Then the superior edge of the fascial incision was grasped with whitney clamps and tented up and dissected down with a combination of sharp and blunt dissection. The rectus muscles were in the midline and the peritoneum was entered bluntly. The peritoneal incision was extended laterally with blunt dissection. The bladder blade was inserted. A transverse incision was made in the lower uterine segment with the scalpel. The incision was extended superiorly and inferiorly with blunt pressure. The infants head delivered with fundal pressure followed by the shoulders and the rest of the body. The cord was milked toward the baby and after 1min it was clamped x2 and cut. The baby was handed to the family physician. Cord blood was collected. The placenta delivered with fundal massage and gentle cord traction and appeared to be intact. The uterus was exteriorized and cleared of clots and debris. The uterine incision was closed with 0-vicryl in a running locked fashion with a second layer of suture imbricating the first. Good hemostasis was noted. The uterus was placed back into the abdominal cavity. Clots were cleared from the peritoneal cavity with lap sponges. The incision was inspected once again and good hemostasis was noted. There was good hemostasis of the rectus muscles. The fascia was closed with 0-vicryl in a running unlocked fashion. The subcuticular layer was irrigated and closed with interrupted sutures of 3-0 vicryl. The skin was closed with 4-0 vicryl in a running subcuticular fashion. The incision was cleaned. A dressing was placed. The fundus was palpated to be firm. The patient was moved to the stretcher and taken to the recovery room in stable condition.
[2023-03-31] MEDS: Oxytocin/Normal Saline 30 UNIT/500 ML BAG 334 UNITS IV (09:30)
[2023-03-31] MEDS: Ketorolac 30 MG/ML VIAL IVP ×2 (14:13→20:09)
[2023-03-31] MEDS: Normal Saline Flush 10 ML SYR IVP (14:13)
--- NOTE | 2023-03-31 15:39 | W.ANESPOSTOP ---
Postoperative Evaluation Date, Time and Location Date Performed: 03/31/23 Time Performed: 13:30 Patient Location: Day Surgery Unit Vital Signs Most Recent Imported Vital Signs: Most Recent Vital Signs Temp Pulse Resp BP Pulse Ox 36.4 C L 77 16 133/74 100 03/31/23 09:30 03/31/23 12:30 03/31/23 12:30 03/31/23 12:30 03/31/23 12:30 Pain Score Most Recent Pain Score: Most Recent Pain Score Pain Level [Abdomen] 0 03/31/23 10:30 Pain Level 0 03/31/23 14:13 Assessment Mental Status: Awake (Alert & Oriented to Patient Baseline) Airway and Respiratory Function: Patent airway with normal (patient baseline) respiratory exam Cardiovascular Function: Hemodynamically Stable Hydration Status: Adequately Hydrated Nausea & Vomiting: No Nausea or Vomiting Pain: Pt. Denies Any Pain Peripheral Nerve Block: Patient did not receive a nerve block
[2023-03-31] MEDS: Docusate Sodium 100 MG CAP PO (20:09)
[2023-04-01] MEDS: Ketorolac 30 MG/ML VIAL IVP ×2 (02:54→10:03)
[2023-04-01 03:04] VITALS: BP 113/71; PULSE 84; RESP 16; TEMP 36.7
[2023-04-01 08:15] VITALS: BP 118/78; PULSE 84; RESP 16; TEMP 36.5; O2SAT 98
--- NOTE | 2023-04-01 08:49 | W.PM.OBPNV1 ---
Date of service: 04/01/23 Time of Service: 08:49 Assessment and Plan Assessment and plan (1) Status post delivery: Status: Acute Assessment and plan: Postop day 1 primary delivery for arrest of descent. Patient remains comfortable and has good support breast-feeding. She had urinary retention yesterday and a inability to void after a straight cath. The plan at this time is to keep the Gatica catheter in place for 24 hours. Plan is to help her out of bed today assist her with caring for her and attempt to have her void spontaneously. Exam Physical Exam Vital signs: Temp Pulse Resp BP Pulse Ox 98.1 F 84 16 113/71 98 04/01/23 03:04 04/01/23 03:04 04/01/23 03:04 04/01/23 03:04 03/31/23 23:32 Vital Signs Reviewed: Yes Notable Details: none Constitutional Constitutional: no acute distress Respiratory Exam Respiratory Exam: Normal Cardiovascular Exam Cardiovascular Exam: Normal Abdominal Exam Comments: Incision remains covered with a sterile dressing. No ecchymosis on the abdominal wall Fundal Exam Fundus: Below Umbilicus and Firm Rectal Exam Comments: Deferred Extremities Exam Extremity Exam: Normal Skin Exam Skin Exam: Normal Neurological Exam Neurological Exam: Normal Psychiatric Exam Psychiatric Exam: Normal Results Hemoglobin/Hematocrit: Hgb 12.0 g/dL (11.2-15.7) 03/30/23 06:27 Hct 35.3 % (36.0-46.0) L 03/30/23 06:27 Abnormal Lab Findings: Abnormal Labs 03/30/23 06:27 WBC 13.78 H Hct 35.3 L
[2023-04-01] MEDS: Normal Saline Flush 10 ML SYR IVP (10:03)
[2023-04-01] MEDS: Acetaminophen 325 MG TAB 650 MG PO ×2 (12:04→20:01)
[2023-04-01 13:10] VITALS: BP 120/84; PULSE 86; RESP 17; O2SAT 99
[2023-04-01 16:30] VITALS: BP 128/84; PULSE 86; RESP 16
[2023-04-01] MEDS: oxyCODONE 5 mg/Acetaminophen 325 mg TAB PO ×2 (16:53→20:28)
[2023-04-01] MEDS: Docusate Sodium 100 MG CAP PO (16:54)
[2023-04-01] MEDS: Ibuprofen 600 MG TAB PO (20:00)
[2023-04-01 20:06] VITALS: BP 121/71; PULSE 84; TEMP 36.9
[2023-04-01 23:28] VITALS: BP 135/79; PULSE 64; TEMP 36.8
[2023-04-02 04:00] VITALS: BP 134/86; PULSE 71; TEMP 36.4
[2023-04-02] MEDS: Ibuprofen 600 MG TAB PO (05:08)
[2023-04-02] MEDS: Acetaminophen 325 MG TAB 650 MG PO (05:08)
[2023-04-02 07:36] VITALS: BP 122/80; PULSE 79; RESP 18; TEMP 36.7; O2SAT 97
--- NOTE | 2023-04-02 09:53 | W.PM.OBDISCH ---
Date of service: 04/02/23 Time of Service: 09:53 DS: Diagnosis Discharge Diagnosis (1) Status post delivery: Status: Acute Asessment and Plan: Routine discharge. See instructions Discharge Plan Disposition Condition: Good Discharge Details Reason For Visit: Labor Admit Date/Time: 03/30/23 05:48 Admit Provider: Inge Dumont Attending Provider: Inge Dumont Hospital Course Hospital Course: Pt was admitted on 03/30 with SROM and proceeded into active labor. She progressed to 9cm when she underwent arrest of labor and had an uncomplicated C section. Baby was OP position and asynclitic. She had a routine post-op course and was ready for d/c POD#2. Discharge Instructions Activity:: No lifting >20lbs Equipment/Supplies:: No Equipment Needed Diet:: As Tolerated OB:DS Summary Summary Delivery Method: Unscheduled Contraception Discussed Contraception Discussed: Yes (abstinence for now, plans to discuss further with [facility]), Gender-Baby A: Male weight: 7 lb 9.695 oz Status at Discharge Functional status at discharge: independent ambulation Overall status at discharge: patient is back to baseline Mental Status: mental status grossly normal Speech and Movement: speech and movement normal Mood: congruent mood Affect: normal affect Exam Physical Exam Vital signs: Temp Pulse Resp BP Pulse Ox 98.1 F 79 18 122/80 97 04/02/23 07:36 04/02/23 07:36 04/02/23 07:36 04/02/23 07:36 04/02/23 07:36 PFSH All Active Problems (Updated 03/31/23 @ 07:42 by Inge Dumont MD) Status post delivery (Acute) Arrested active phase of labor (Acute) (Acute) Positive GBS test (Acute) Rupture, membranes, premature (Acute) Medical History (Updated 03/31/23 @ 07:42 by Inge Dumont MD) Depression no medication Social History Smoking/Tobacco Use Status: Never Smoking risk assessment performed?: Yes Alcohol Intake: never Drug use: Never Substance use type: does not use Do you feel safe at home: Yes Do you feel safe in your relationship?: Yes History History 1 Para 0 Hx # Term Pregnancies Multiple births Hx # Pregnancies Ectopic pregnancies AB induced Hx Number of Living Children AB spontaneous DS: Data Vitals/I&O Vitals and I&O: Vital Signs Temperature 98.1 F 04/02/23 07:36 Temperature 208.9 F 03/30/23 05:31 Temperature Source Oral 04/02/23 07:36 Pulse 79 04/02/23 07:36 Pulse 100 03/30/23 05:31 Pulse Rhythm Regular 04/02/23 07:36 Respiratory Rate 18 04/02/23 07:36 Respiratory Depth Normal 04/01/23 20:06 Blood Pressure 122/80 04/02/23 07:36 Blood Pressure 134/88 03/30/23 05:31 Blood Pressure Mean 94 04/02/23 07:36 Pulse Oximetry 97 04/02/23 07:36 Oxygen Delivery Method Room Air 03/30/23 07:19 Oxygen Flow Rate 0 03/30/23 07:19 Pain Level 5 04/02/23 05:08 Intake & Output 04/01/23 04/01/23 04/02/23 11:59 23:59 11:59 Intake Total 600 / 600 Output Total 1550 / 3800 2100 / 3800 750 / 750 Balance -950 / -3200 -2100 / -3200 -750 / -750 Intake: Oral 600 / 600 Output: Urine 1550 / 3800 2100 / 3800 750 / 750 Other: Urine Color Yellow Yellow Urine Appearance Clear Clear Comment Inserted per verbal orders from Inge Dumont MD for urinary retention. Bladder scanned prior for 500 mls and 450 ml of immediate urine return after insertion. Inserted per verbal orders from Inge Dumont MD for urinary retention. Bladder scanned prior for 500 mls and 450 ml of immediate urine return after insertion.
--- NOTE | 2023-04-02 10:10 | W.PM.OBPNV1 ---
Date of service: 04/02/23 Time of Service: 10:10 Assessment and Plan Assessment and plan (1) Status post delivery: Status: Acute Assessment and plan: Pt doing well POD#2 s/p PCS for arrest. Plan for D/C today. She has a f/u appt at [facility] in 2 days and will f/u here in either 2wks or 6wks. She has met with and is establishing a feeding plan. Subjective Subjective Interval history: Pt feeling well overall, just tired. Pain well controlled on Motrin and Tylenol. Ambulating without difficulty. Mookie PO. +Flatus, no BM yet. Minimal lochia. Currently pumping and bottle feeding that to baby as he has struggled with latching. Exam Physical Exam Vital signs: Temp Pulse Resp BP Pulse Ox 98.1 F 79 18 122/80 97 04/02/23 07:36 04/02/23 07:36 04/02/23 07:36 04/02/23 07:36 04/02/23 07:36 Vital Signs Reviewed: Yes Constitutional Constitutional: no acute distress and cooperative Detailed HEENT Exam Head: Present normocephalic and atraumatic Respiratory Exam Respiratory Exam: Normal Abdominal Exam Abdomen: Tender (mildly) Comments: Incision clean, dry, intact Fundal Exam Fundus: Below Umbilicus and Firm Extremities Exam Extremity Exam: Edema (trace) Detailed Neurological Exam Neurological: Present alert, oriented X3 and CN II-XII intact Results Hemoglobin/Hematocrit: Hgb 12.0 g/dL (11.2-15.7) 03/30/23 06:27 Hct 35.3 % (36.0-46.0) L 03/30/23 06:27 Abnormal Lab Findings: Abnormal Labs 03/30/23 06:27 WBC 13.78 H Hct 35.3 L
== END 2023-04-02 12:35 | disposition home or self-care (01) | DRG 788 ==
LOC: OBS 03-31 07:23 → BCD 04-03 11:14
PROVIDERS: Admitting Provider Obstetrics & Gynecology; Visit Provider Obstetrics & Gynecology
PROC: 10D00Z1 Extraction of Products of Conception, Low, Open Approach (ICD-10-PCS; CPT 59514; principal; 2023-03-31 07:30)
DX: O42.92 Full-term premature rupture of membranes, unspecified as to length of time between rupture and onset of labor (principal); Z37.0 Single live birth; Z3A.37 37 weeks gestation of pregnancy; O99.824 Streptococcus B carrier state complicating childbirth; O99.344 Other mental disorders complicating childbirth; F32.A Depression, unspecified; O62.1 Secondary uterine inertia; O67.8 Other intrapartum hemorrhage; O32.8XX0 Maternal care for other malpresentation of fetus, not applicable or unspecified; O90.89 Other complications of the puerperium, not elsewhere classified; R33.8 Other retention of urine
CPT/HCPCS: 59514; 84112; 85027; 86850; 86900; 86901; 88307; J0131; J0456; J0690; J1100; J1885; J2310; J2370; J2405; J2540; J3010; J3490